=== PATIENT | female | born 1980 | race Caucasian/White ===

== ENCOUNTER 2022-12-11 10:31 | Outpatient (OUT) | payer BC, SELFPAY ==
--- NOTE | 2022-12-11 10:36 | MM_ITS ---
Patient: FABIOLA ANAYA Exam Date: 12/11/2022 : 1980 Gender:F Ordering : DR. LAN SINGLETON D.O. Admission #: [id number] Family : DR MARGARET COLLADO . Order #: [id number] CLICK HERE TO VIEW EXAM RADIOLOGY REPORT PROCEDURE: MM TOMOSYNTHESIS SCREENING BI COMPARISON: MG MAMM SCREEN 3D CHRISTINA CAD, 12/08/2021. MG MAMM RT DIAG W CAD, 10/16/2019. MG MAMM SCREEN CHRISTINA W CAD, 02/25/2019. INDICATIONS: Screening Calculator Name NCI Breast Cancer Risk Assessment Tool 5 Year Breast Cancer Risk 2.80% Lifetime Breast Cancer Risk 20.20% Personal Breast Cancer No Personal Ovarian Cancer No Treatments None Family Cancers None LOCATION: [facility] BREAST COMPOSITION: Heterogeneously dense,which may obscure small masses. FINDINGS: DIAGNOSTIC CATEGORY 2--BENIGN FINDING: RIGHT BREAST: No significant suspicious finding. Chronic, benign appearing lymph node within the upper-outer quadrant. Stable biopsy marker clip. No significant change has occurred. LEFT BREAST: No significant suspicious finding. No significant change has occurred. RECOMMENDATIONS: ROUTINE MAMMOGRAM AND CLINICAL EVALUATION IN 12 MONTHS. PLEASE NOTE: A NORMAL MAMMOGRAM DOES NOT EXCLUDE THE POSSIBILITY OF BREAST CANCER. A CLINICALLY SUSPICIOUS PALPABLE LUMP SHOULD BE BIOPSIED. Dictated by: Jeremi Cantrell M.D. on 12/11/2022 at 15:29 Approved by: Jeremi Cantrell M.D. on 12/11/2022 at 15:31
== END 2022-12-11 10:32 | disposition home or self-care (01) ==
LOC: MAMMO 10:31
PROVIDERS: PCP Family Medicine; Visit Provider Obstetrics & Gynecology
DX: Z12.31 Encounter for screening mammogram for malignant neoplasm of breast (principal)
CPT/HCPCS: 77063; 77067

== ENCOUNTER 2023-12-13 16:03 | Outpatient (OUT) | payer BC, SELFPAY ==
--- NOTE | 2023-12-13 16:06 | MM_ITS ---
Patient Name: FABIOLA ANAYA MR#: [id number] : 1980 Exam Date: 12/13/2023 Ordering Doctor: DR MARGARET COLLADO . RADIOLOGY REPORT PROCEDURE: MM TOMOSYNTHESIS SCREENING BI COMPARISON: MM TOMOSYNTHESIS SCREENING BI, 12/11/2022. INDICATIONS: Screening for malignant neoplasm Calculator Name NCI Breast Cancer Risk Assessment Tool 5 Year Breast Cancer Risk 3.00% Lifetime Breast Cancer Risk 19.90% Personal Breast Cancer No Personal Ovarian Cancer No Treatments None Family Cancers None LOCATION: [facility] BREAST COMPOSITION: The breasts are heterogeneously dense,which may obscure small masses. FINDINGS: DIAGNOSTIC CATEGORY 2--BENIGN FINDING. NO CHANGE FROM COMPARISON. Scattered benign-appearing calcifications are present. Scattered benign-appearing lymph nodes are present. RIGHT BREAST: No significant suspicious finding. LEFT BREAST: No significant suspicious finding. RECOMMENDATIONS: ROUTINE MAMMOGRAM AND CLINICAL EVALUATION IN 12 MONTHS. PLEASE NOTE: A NORMAL MAMMOGRAM DOES NOT EXCLUDE THE POSSIBILITY OF BREAST CANCER. A CLINICALLY SUSPICIOUS PALPABLE LUMP SHOULD BE BIOPSIED. Dictated by: Elmo Del Cid MD on 12/14/2023 at 07:44 Approved by: Elmo Del Cid MD on 12/14/2023 at 07:47
--- OUTSIDE RECORDS SUMMARY | 2023-12-13 16:14 | XMS_ITS | CCD ---
Author Organization [facility] CliniSyct Care Team Providers Care Communications Coordinator Name Role Phone Caity Wood Unavailable Unavailable Caity Wood Unavailable Unavailable Cary Young Unavailable Unavailable RINKESELIZABETH Admitting Unavailable RINKES, ELIZABETH Attending Unavailable ZIEBER, DR JEREMI White Consulting Unavailable RINKES, ELIZABETH Consulting Unavailable TIMMIS, DR ZEPEDA Admitting Unavailable TIMMIS, DR ZEPEDA Attending Unavailable HEMEYER ., DR ROBLES Primary Care Unavailable TIMMIS, DR ZEPEDA Consulting Unavailable SHARP, OSORIO Consulting Unavailable KERRY II, SOFIA Consulting Unavailable TIMMIS, DR ZEPEDA Admitting Unavailable TIMMIS, DR ZEPEDA Attending Unavailable HEMEYER ., DR ROBLES Primary Care Unavailable TIMMIS, DR ZEPEDA Consulting Unavailable COOPER, LUC Consulting Unavailable TIMMIS, DR ZEPEDA Admitting Unavailable TIMMIS, DR ZEPEDA Attending Unavailable HEMEYER ., DR ROBLES Primary Care Unavailable TIMMIS, DR ZEPEDA Consulting Unavailable ZIEBER, DR JEREMI White Consulting Unavailable HEMEYER ., DR ROBLES Admitting Unavailable HEMEYER ., DR ROBLES Attending Unavailable HEMEYER ., DR ROBLES Consulting Unavailable JESSICA ROSS Consulting Unavailable Eron Collado MD Unavailable [phone] Eron Collado MD Primary Care Provider ERON COLLADO Attending Unavailable ERON COLLADO Attending Unavailable ERON COLLADO Attending Unavailable Medications Current Medications Medication Drug Class(es) Dates Sig (Normalized) Sig (Original) thyroid (half-way) 60 mg oral tablet (3 sources) Start: 09-22-2022 End: 03-21-2023 take 1 tablet by mouth in the morning thyroid (FITTER TYPE BAR AND SEGMENT Thyroid) 60 MG tablet Indications: Acquired hypothyroidism (CMS/HCC) , Marlene's thyroiditis (CMS/HCC) , Sick-euthyroid syndrome Take 1 tablet (60 mg) by mouth in the morning and 1 tablet (60 mg) in the evening. Take before meals. 180 tablet 1 09/22/2022 Active Problems Active Problems Problem Classification Problem Date Documented Date Episodic/Chronic Anxiety disorders (6 sources) Mixed anxiety and depressive disorder; Translations: [Other specified anxiety disorders] Onset: 08-22-2022 08-22-2022 Chronic Essential hypertension (4 sources) Essential (primary) hypertension; Translations: [Essential hypertension] Onset: 02-19-2022 08-22-2022 Chronic Lymphadenitis (1 source) Localized enlarged lymph nodes; Translations: [LOCALIZED ENLARGED LYMPH NODES] Onset: 05-22-2022 Episodic Malaise and fatigue (3 sources) Fatigue; Translations: [Chronic fatigue, unspecified] Onset: 08-22-2022 08-22-2022 Chronic Mood disorders (3 sources) Recurrent major depression in partial remission; Translations: [Major depressive disorder, recurrent, in partial remission] Onset: 08-22-2022 08-22-2022 Chronic Other endocrine disorders (3 sources) Reactive hypoglycemia; Translations: [Other hypoglycemia] Onset: 08-23-2018 08-22-2022 Chronic Other nervous system disorders (3 sources) Inattention; Translations: [Attention and concentration deficit] Onset: 08-22-2022 08-22-2022 Chronic Other nutritional; endocrine; and metabolic disorders (3 sources) Hypophosphatemia; Translations: [Other disorders of phosphorus metabolism] Onset: 08-22-2022 08-22-2022 Chronic Other nutritional; endocrine; and metabolic disorders (3 sources) Insulin resistance; Translations: [Insulin resistance] Onset: 08-22-2022 08-22-2022 Chronic Other nutritional; endocrine; and metabolic disorders (3 sources) Metabolic syndrome X; Translations: [Metabolic syndrome X] Onset: 08-22-2022 08-22-2022 Chronic Other upper respiratory disease (3 sources) Allergic rhinitis; Translations: [Allergic rhinitis, unspecified] Onset: 08-22-2022 08-22-2022 Chronic Residual codes; unclassified (3 sources) Initial insomnia; Translations: [Other insomnia] Onset: 08-22-2022 08-22-2022 Chronic Thyroid disorders (14 sources) Autoimmune thyroiditis; Translations: [Nontoxic single thyroid nodule] Onset: 03-23-2022 Chronic Past or Other Problems Problem Classification Problem Date Documented Da te Episodic/Chronic Abdominal pain (3 sources) Generalized abdominal pain; Translations: [Generalized abdominal pain] Onset: 08-22-2022 08-22-2022 Episodic Nutritional deficiencies (3 sources) Iron deficiency; Translations: [Iron deficiency] Onset: 08-22-2022 08-22-2022 Episodic Other circulatory disease (1 source) Other specified symptoms and signs involving the circulatory and respiratory systems; Translations: [OTH SPEC SX SIGNS INVLV CIRC RS] Onset: 02-19-2022 Episodic Other lower respiratory disease (4 sources) Shortness of breath; Translations: [SHORTNESS OF BREATH] Onset: 02-15-2022 Episodic Other screening for suspected conditions (not mental disorders or infectious disease) (4 sources) Encounter for screening mammogram for malignant neoplasm of breast; Translations: [ENC SCR MAMMO MALIG NEOPLASM BREAST] Onset: 12-08-2021 Episodic Other skin disorders (3 sources) Vitiligo; Translations: [Vitiligo] Onset: 08-22-2022 08-22-2022 Episodic Thyroid disorders (10 sources) Disorder of thyroid, unspecified; Translations: [Sick-euthyroid syndrome] Onset: 05-10-2022 Episodic Results Test Name Value Interpretation Reference Range Facil ity PREG HCG QUALon 05-16-2022 , QUAL Negative Normal NEGATIVE [facility] Comment on above: Performed By: #### P REG #### [facility] [address] [address] [address] Jennifer Ochoa CALCIUMon 05-08-2022 Calcium [Mass/Vol] 9.0 mg/dL Normal 8.5-10.1 [facility] Comment on above: Performed By: #### C A, MG, PHOS #### [facility] [address] [address] [address] Jennifer Ochoa CBC AUTO DIFFon 05-08-2022 BASO # 0.0 103/ul Normal 0.0-0.1 [facility] Comment on above: Performed By: #### C BC #### [facility] [address] [address] [address] Jennifer Ochoa Basophils/100 WBC (Bld) 0.7 % Normal 0.2-2.0 [facility] Comment on above: Performed By: #### C BC #### [facility] [address] [place] [address] Dr. Jennifer Ochoa EO # 0.1 103/ul Normal 0.0-0.7 [facility] Comment on above: Performed By: #### C BC #### [facility] [address] [place] [address] Dr. Jennifer Ochoa Eosinophils/100 WBC (Bld) 2.4 % Normal 0.9-7.0 [facility] Comment on above: Performed By: #### C BC #### [facility] [address] [place] [address] Dr. Jennifer Ochoa Erythrocyte distribution width (RBC) [Ratio] 13.7 % Normal 11.0-15.0 [facility] Comment on above: Performed By: #### C BC #### [facility] [address] [place] [address] Dr. Jennifer Ochoa Hematocrit (Bld) [Volume fraction] 40.4 % Normal 36.0-48.0 [facility] Comment on above: Performed By: #### C BC #### [facility] [address] [place] [address] Dr. Jennifer Ochoa Hemoglobin (Bld) [Mass/Vol] 13.0 g/dL Normal 12.0-16.0 [facility] Comment on above: Performed By: #### C BC #### [facility] [address] [place] [address] Dr. Jennifer Ochoa IG # 0.01 10e3/ul Normal 0.00-0.03 [facility] Comment on above: Performed By: #### C BC #### [facility] [address] [place] [address] Dr. Jennifer Ochoa IG % 0.2 % Normal 0.0-0.5 [facility] Comment on above: Performed By: #### C BC #### [facility] [address] [place] [address] Dr. Jennifer Ochoa LYMPH # 1.3 103/ul Normal 1.2-3.8 [facility] Comment on above: Performed By: #### C BC #### [facility] [address] [place] [address] Dr. Jennifer Ochoa Lymphocytes/100 WBC (Bld) 23.7 % Normal 20.5-60.0 [facility] Comment on above: Performed By: #### C BC #### [facility] [address] [place] [address] Dr. Jennifer Ochoa MANUAL DIFF REQ NO Normal [facility] Comment on above: Performed By: #### C BC #### [facility] [address] [place] [address] Dr. Jennifer Ochoa MCH (RBC) [Entitic mass] 28.2 pg Normal 26.7-34.0 [facility] Comment on above: Performed By: #### C BC #### [facility] [address] [place] [address] Dr. Jennifer Ochoa MCHC (RBC) [Mass/Vol] 32.2 g/dL Normal 29.9-35.2 [facility] Comment on above: Performed By: #### C BC #### [facility] [address] [place] [address] Dr. Jennifer Ochoa MCV (RBC) [Entitic vol] 87.6 fL Normal 81.0-99.0 [facility] Comment on above: Performed By: #### C BC #### [facility] [address] [place] [address] Dr. Jennifer Ochoa MONO # 0.5 103/ul Normal 0.3-0.8 [facility] Comment on above: Performed By: #### C BC #### [facility] [address] [place] [address] Dr. Jennifer Ochoa Monocytes/100 WBC (Bld) 8.3 % Normal 1.7-12.0 [facility] Comment on above: Performed By: #### C BC #### [facility] [address] [place] [address] Dr. Jennifer Ochoa NEUT # 3.6 103/ul Normal 1.4-6.5 [facility] Comment on above: Performed By: #### C BC #### [facility] [address] [place] [address] Dr. Jennifer Ochoa Neutrophils/100 WBC (Bld) 64.7 % Normal 43.0-75.0 [facility] Comment on above: Performed By: #### C BC #### [facility] [address] [place] [address] Dr. Jennifer Ochoa Platelet mean volume (Bld) [Entitic vol] 9.8 fL Normal 9.5-13.5 [facility] Comment on above: Performed By: #### C BC #### [facility] [address] [place] [address] Dr. Jennifer Ochoa PLT 268 103/ul Normal 150-450 [facility] Comment on above: Performed By: #### C BC #### [facility] [address] [place] [address] Dr. Jennifer Ochoa RBC 4.61 106/ul Normal 4.20-5.40 [facility] Comment on above: Performed By: #### C BC #### [facility] [address] [place] [address] Dr. Jennifer Ochoa WBC 5.5 103/ul Normal 4.0-11.0 [facility] Comment on above: Performed By: #### C BC #### [facility] [address] [place] [address] Dr. Jennifer Ochoa MAGNESIUMon 05-08-2022 Magnesium [Mass/Vol] 2.1 mg/dL Normal 1.8-2.4 [facility] Comment on above: Performed By: #### C A, MG, PHOS #### [facility] [address] [place] [address] Dr. Jennifer Ochoa PHOSPHORUSon 05-08-2022 Phosphate [Mass/Vol] 1.9 mg/dL Critically low 2.6-4.7 [facility] Comment on above: Performed By: #### C A, MG, PHOS #### [facility] [address] [place] [address] Dr. Jennifer Ochoa PROTIMEon 05-08-2022 INR Coag (PPP) [Relative time] 0.96 {INR} Normal [facility] Comment on above: Performed By: #### P T, PTT ####[facility] [id number] [place], [place] [address]Wq. Jennifer Ochoa INR GUIDELINES SEE BELOW Normal [facility] Comment on above: Result Comment: SURJIT RED INR: 2.0 - 3.0 CONDITIONS NOT LISTED BELOW 2.5 - 3.5 FOR PROSTHETIC HEART VALVE REPLACEMENT 2.5 - 3.5 RECURRENT THROMBOSIS Performed By: #### P T, PTT ####[facility] [id number] [place], [place] [address]Ie. Jennifer Ochoa PT Coag (PPP) [Time] 10.2 s Normal 9.0-11.6 [facility] Comment on above: Performed By: #### P T, PTT ####[facility] [id number] [place], [place] [address]Ni. Jennifer Ochoa PTTon 05-08-2022 aPTT Coag (Bld) [Time] 29.1 s Normal 22.3-36.2 [facility] Comment on above: Performed By: #### P T, PTT #### [facility] [address] [place], [place] [address] Dr. Jennifer Ochoa US THYROID FN ASP BXon 03-31 US THYROID FN ASP BX Begin Addendum #1 COLLECTED DATE/TIME: 03/23/2022 13:28 EST Final Diagnosis Report for [facility] [place], [place] (A/B) RIGHT ISTHMUS THYROID NODULE, ULTRASOUND GUIDED FINE NEEDLE ASPIRATION: -ATYPIA OF UNDETERMINED SIGNIFICANCE. COMMENT: The specimen consists of a few groups of follicular cells with some cytological atypia and occasional background lymphocytes. Cytological evaluation is partially limited by drying artifact on direct smears. The ThinPrep slide is hypocellular. A repeat aspiration after a period of observation may be helpful if clinically warranted. 03/29/[address] Bean. Verified with office staff that report was present in office (BM). Original Report EXAMINATION: US THYROID FN ASP BX HISTORY: Thyroid nodule COMPARISON: Ultrasound thyroid 03/08/2022 TECHNIQUE: After obtaining informed consent, ultrasound-guided fine needle aspiration was performed in the usual sterile manner. FINDINGS: IMAGING: Ultrasound. BIOPSY NEEDLE: 25-gauge, 3 separate passes LOCATION: Right lobe nodule adjacent isthmus versus heterogeneous thyroid tissue. SPECIMEN TYPE: Cellular tissue. LOCAL ANESTHETIC: Buffered Xylocaine. COMPLICATIONS: None. LABORATORY: Prepared slide smears and washings for cell block evaluation. OTHER: Negative. PATHOLOGY: Pending. An addendum will be added when results are available. IMPRESSION: 1. Uneventful ultrasound guided fine needle aspiration (FNA). 2. Pathology results are pending. Normal [facility] US Thyroidon 03-08-2022 US Thyroid CLINICAL HISTORY: 41-year-old female with history of dysphagia. Physician feels enlarged thyroid gland tried COMPARISON: None available. TECHNIQUE: Biplanar images of the thyroid gland were obtained. Also cine images of the thyroid gland were obtained in the axial projections. FINDINGS: The right lobe measures 4.3 x 1.6 x 1.7 cm and has a volume 5.9 mL. The left lobe measures 4.3 x 1.2 x 1.2 cm and has a volume of 3.2 mL. The right lobe is normal in size. Left lobe is normal in size. Thyroid gland has a heterogeneous echotexture throughout. There is a nodule in the right isthmus. Right lobe: Nodule location: Right isthmus with vascularity. Nodule size: 2.1 x 1.4 x 0.7 cm Composition: Solid Echogenicity: Hypoechoic Shape: wider than long Margin: Extrathyroidal extension Echogenic Foci: none Total points: 7 TR 5 nodule: Highly Suspicious: FNA greater than 1 cm; follow if greater than 0.5 cm Left lobe: Unremarkable. IMPRESSION: NORMAL-SIZED THYROID GLAND WITH HETEROGENEOUS ECHOTEXTURE. 2.1 CM, TR 5 NODULE RIGHT LOBE AT THE ISTHMUS, CONSIDER BIOPSY TO EXCLUDE NEOPLASM. Note, please refer to ACR TI-RADS 2017 White paper for classification of nodules. TR 1: Benign: No FNA. TR 2: Not Suspicious: No FNA. TR 3 nodule, Mildly Suspicious: FNA if greater than 2.5 cm; follow if greater than 1.5 cm TR 4 nodule: Moderately Suspicious : recommend FNA if greater than 1.5 cm; follow-up if greater than 1 cm. TR 5 nodule: Highly Suspicious: FNA greater than 1 cm; follow if greater than 0.5 cm Report reported and signed by Rosy Maguire on 03/09/2022 0914 Normal [facility] Practice Management Consultant XR CHEST 2 Von 02-15-2022 XR CHEST 2 V EXAM: CHEST 2 VIEWS HISTORY: Dyspnea TECHNIQUE: PA and lateral views chest. COMPARISON: None. FINDINGS: The lungs are clear. There is no focal lung consolidation, pleural effusion or pneumothorax. Pulmonary vasculature is within normal limits. The cardiomediastinal silhouette is normal. IMPRESSION: 1. No acute cardiopulmonary disease. Electronically authenticated by: JESSICA ROSS Date: 2022-02-15 17:22 Normal [facility] MG MAMM SCREEN 3D CHRISTINA CADon 12-08-2021 MG MAMM SCREEN 3D CHRISTINA CAD Patient: FABIOLA ANAYA Exam Date: 12/08/2021 : 1980 Gender:F Ordering : DR. ELIZABETH WHITE D.O. Admission #: [id number] Family : DR ERON COLLADO . Order #: [id number] CLICK HERE TO VIEW EXAM RADIOLOGY REPORT PROCEDURE: MAMMOGRAM SCREENING 3D BILATERAL CAD COMPARISON: MG MAMM SCREEN CHRISTINA W CAD, 02/25/2019. MG MAMM RT DIAG W CAD, 10/16/2019. MAMMO POST BIOPSY RIGHT, 03/11/2019. INDICATIONS: Screening mammography Calculator Name NCI Breast Cancer Risk Assessment Tool 5 Year Breast Cancer Risk 2.60% Lifetime Breast Cancer Risk 20.50% Personal Breast Cancer No Personal Ovarian Cancer No Treatments None Family Cancers None LOCATION: [facility] BREAST COMPOSITION: Heterogeneously dense,which may obscure small masses. FINDINGS: DIAGNOSTIC CATEGORY 2--BENIGN FINDING: RIGHT BREAST: No significant suspicious finding. Decrease in size of previously biopsied nodule within upper-outer quadrant. Small benign appearing lymph node within posterior lower-outer quadrant. LEFT BREAST: No significant suspicious finding. No significant change has occurred. RECOMMENDATIONS: ROUTINE MAMMOGRAM AND CLINICAL EVALUATION IN 12 MONTHS. PLEASE NOTE: A NORMAL MAMMOGRAM DOES NOT EXCLUDE THE POSSIBILITY OF BREAST CANCER. A CLINICALLY SUSPICIOUS PALPABLE LUMP SHOULD BE BIOPSIED. Dictated by: Jeremi Cantrell M.D. on 12/08/2021 at 15:35 Approved by: Jeremi Cantrell M.D. on 12/08/2021 at 15:42 Normal [facility] Free T3on 03-21-2021 FT3 3.93 pg/mL Normal 2.00-4.40 [facility] Comment on above: Performed By: #### T SH, FT3, FT4 #### [facility] [address] [place], [place] [id number] Free T4on 03-21-2021 Free T4 [Mass/Vol] 1.05 ng/dL Normal 0.80-1.80 [facility] Comment on above: Performed By: #### T SH, FT3, FT4 #### [facility] [address] [place], [place] [id number] Q - T3 TOTALon 03-21-2021 T3, TOTAL 148 ng/dL Normal 76-181 [facility] Comment on above: Order Comment: [facility] performed at: [facility], [facility], [address] [facility], [address] [place] [address], [id number], Customer Contact Specialist: Dimitris Hughes MD [facility] Collection Date/Time: [facility] Results Received Date/Time: [facility] Reported Date/Time: Performed By: #### 9 [id number], [id number] #### [facility] Default [address] [place] [address] Q - T3,REVERSE,LC/MS/MSon T3 REVERSE, LC/MS/MS 17 ng/dL Normal 8-25 [facility] Specialist Comment on above: Order Comment: [facility] performed at: [facility], [facility], [address], [place], [place], , Customer Contact Specialist: Todd Chaves M.D.,PhD [facility] Collection Date/Time: [facility] Results Received Date/Time: [facility] Reported Date/Time: Result Comment: This test was developed and its analytical performance characteristics have been determined by [facility] [place], [place]. It has not been cleared or approved by the U.S. Food and Drug Administration. This assay has been validated pursuant to the CLIA regulations and is used for clinical purposes. Performed By: #### 9 [id number], [id number] #### [facility] [address] [place] [address] TSHon 03-21-2021 TSH Qn m[IU]/L [facility] Practice Management Consultant Comment on above: Performed By: #### T SH, FT3, FT4 #### [facility] [address] [place], [place] [id number] Encounters Encounter Date Encounter Type Care Provider Facility Start: 08-29-2023 End: 08-29-2023 ambulatory ERON COLLADO Not Available Start: 06-19-2023 End: 06-19-2023 ambulatory ERON COLLADO Not Available Start: 03-27-2023 Bamboo flowsheet Eron valles MD Work Phone: [facility] Start: 03-27-2023 Bamboo flowsheet Eron valles MD Work Phone: [facility] Start: 03-27-2023 End: 03-27-2023 ambulatory ERON COLLADO Not Available Start: 03-26-2023 Chart abstracting Eron mendoza MD Work Phone: [facility] Start: 03-20-2023 Chart abstracting Eron mendoza MD Work Phone: [facility] Start: 05-16-2022 End: 05-17-[address] MYLENE BEAN Facility:[facility] Start: 05-10-2022 Encounter for preprocedural laboratory examination DR MYLENE BEAN [facility] Start: 05-08-2022 End: 05-09-[address] MYLENE BEAN Facility:[facility] Start: 05-08-2022 End: 05-09-2022 Encounter for preprocedural laboratory examination DR MYLENE BEAN Facility:[facility] Start: 03-23-2022 End: 03-23-[address] MYLENE BEAN Facility:[facility] Start: 02-15-2022 End: 02-16-[address] ERON COLLADO . Facility:[facility] Start: 12-08-2021 End: 12-09-2021 ambulatory ELIZABETH WHITE Facility: Start: 03-02-2017 End: 03-03-2017 Ambulatory Caity Wood Facility:[facility] Procedures Date Procedure Procedure Detail Performing Clinician Start: 12-11-2022 Mammography Eron mendoza MD Work Phone: Plan of Treatment Date Care Activity Detail Author Start: 10-26-2027 Screening for malign ant neoplasm of cervix [facility] Start: 12-12-2023 Screening for malign ant neoplasm of breast Mammogram [facility] Start: 11-15-2023 End: 11-15-2023 Patient encounter procedure 11/15/2023 10:15 AM EDT Office Visit [facility] [address] [place] [id number] Elizabeth White, DO [address] [place] [address] [facility] Start: 03-27-2023 End: 03-27-2023 Patient encounter procedure [facility] Comment on above: Acquired hypothyroid ism (CMS/HCC); Sick-euthyroid syndrome; Chronic fatigue Start: 10-13-2022 Influenza vaccination Influenza Vacc ine (#1) [facility] Start: 07-21-1999 Screening for malign ant neoplasm of cervix Pap Smear [facility] Payers Date Payer Category Payer Unknown 1980 Unknown [id number] 2.16.84 [id number] 1980 Unknown [id number] 2.16.84 [id number] 1980 Unknown [id number] 2.16.84 [id number] 1980 Unknown [id number] 2.16.84 [id number] 1980 Unknown [id number] 2.16.84 [id number] 1980 Unknown [id number] 2.16.84 [id number] 1980 Unknown [id number] 2.16.84 [id number] 1980 Unknown [id number] 2.16.84 [id number] 1961 Unknown [id number] Social History Date Type Detail Facility Start: 07-13-2022 Tobacco smoking status NHIS Never sm oked tobacco [facility] Start: 10-25-2022 Alcohol intake Current drinke r of alcohol (finding) [facility] Start: 08-28-2022 End: 10-25-2022 Alcohol intake [facility] Start: 07-13-2022 End: 08-28-2022 Humiliation, Afraid, Rape, and Kick questionnaire [HARK] [facility] Within the last year , have you been afraid of your partner or ex-partner? No [facility] Are you now , , , , never or living with a partner? [facility] How often to you hav e a drink containing alcohol? Monthly or less [facility] How many standard dr inks containing alcohol do you have on a typical day? Patient does not drink [facility] How often do you hav e 6 or more drinks on 1 occasion? Never [facility] How hard is it for y ou to pay for the very basics like food, housing, medical care, and heating Somewhat hard [facility] Do you feel stress - tense, restless, nervous, or anxious, or unable to sleep at night because your mind is troubled all the time - these days [OSQ] Very much [facility] (I/We) worried whe er (my/our) food would run out before (I/we) got money to buy more. Never true [facility] Start: 08-26-2022 Education 13 [facility] Start: 07-13-2022 Alcohol Comment Coffee: 1-2 cu ps per day [facility] Start: 1980 Sex Assigned At Not on file [facility] Clinical Note 05-16-2022 Note Date & Type Note Facility 05-16-2022 Note OPERATIVE NOTE OPERATION DATE: 05/16/2022 PRIMARY CARE PHYSICIAN: Eron Collado M.D. SURGEON: Mylene Bean M.D. RULING TECHNICIAN: SAVANNA Stark PREOPERATIVE DIAGNOSIS: Thyroid isthmus mass. POSTOPERATIVE DIAGNOSIS: Right thyroid mass and cervical lymphadenopathy. PROCEDURE: Right hemithyroidectomy and neck exploration. ANESTHESIA: General endotracheal. COMPLICATIONS: None. FINDINGS: A 3 cm right thyroid mass, frozen section consistent with Marlene's thyroiditis and anterior compartment cervical lymphadenopathy. INDICATIONS: This 41-year-old woman presented with a right thyroid isthmus mass. Fine needle aspiration was performed which revealed atypia of undetermined significance. The patient was brought to surgery for removal of the mass for definitive diagnosis. At the time of her procedure, however, it was evident that other than being a thyroid isthmus mass, it was more of a mass of the right side of the thyroid and, therefore, hemithyroidectomy was performed other than removal of a thyroid nodule. In addition, patient was found to have cervical lymphadenopathy in the anterior compartment, and anterior compartment dissection was undertaken. PROCEDURE: Patient identified in the holding area and taken back to the OR, where she was placed in the supine position. After induction of general endotracheal anesthesia, using recurrent laryngeal nerve monitoring tube, the neck was prepped and draped in a sterile fashion. An 8 cm transverse incision, following relaxed skin lines of tension, was mapped out, three finger breadths above the sternal notch. Dissection was carried out through the platysma with electrocautery and subplatysmal flaps were raised superiorly to the thyroid notch and inferiorly to the clavicle. A thyroid retractor was then put in position and the strap muscles were incised in the midline with electrocautery and harmonic scalpel. Once the strap muscles were elevated off of the thyroid isthmus, it became evident that the patient's mass was more of a right thyroid mass than an isthmus mass, and decision was made to proceed with hemithyroidectomy rather than removal of a thyroid nodule. In addition, inferior to the thyroid, there was fibroadipose tissue containing multiple cervical lymph nodes. This was dissected away with harmonic scalpel and sent for separate pathologic analysis. There was a large vein originating off of the thyroid isthmus, and this was clipped with a HemaClip and transected with the harmonic scalpel. Similarly, the vein entering the superior portion of the isthmus was also clipped with a HemaClip and transected with the harmonic scalpel. The isthmus was transected to the left of the thyroid mass, and the residual left lobe was tagged with a Prolene suture to facilitate future identification, should it be necessary. Then, the strap muscles were bluntly dissected off of the anterior and lateral thyroid, and transected with the harmonic scalpel. Then a subcapsular dissection of the thyroid was undertaken, with identification exposure of the superior thyroid vessels, which were hemoclipped and transected with the harmonic scalpel and with transection of the fibrovascular attachments of the inferior portion of the gland. The middle thyroid vein was identified, hemoclipped and transected with the harmonic scalpel. At this point, the gland was rotated medially, and the parathyroid glands were identified and bluntly dissected away from the gland and preserved. The recurrent laryngeal nerve was identified electrically in the tracheoesophageal groove, and with then nerve under continuous electrical observation, the remainder of the gland was dissected away from its fascial attachments until it was attached only by Lira's ligament, which was transected after cautery with bipolar. One dissection was completed, the recurrent laryngeal nerve was stimulated inferiorly and found to be electrically intact. 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 The wound was then copiously irrigated. A #7 round [place] drain was placed through a stab incision in the sternal notch. The strap muscles were re-approximated with interrupted 3-0 Vicryl sutures, and the skin was then closed with two deep interrupted 4-0 Vicryl sutures layers and a running 5-0 Monocryl stitch. A pressure dressing was placed and the patient was awakened and taken to the recovery room in good condition. [facility] Summary Purpose Family History No Family History Records FoundNo Family History Records FoundNo Family History Records FoundNo Family History Records Found Advance Directives No Advanced Directives Records FoundNo Advanced Directives Records FoundNo Advanced Directives Records FoundNo Advanced Directives Records Found Additional Source Comments INFORMATION SOURCE (unrecogn ized section and content) DATE CREATED AUTHOR 08/07/2017 [place] [facility] DATE CREATED AUTHOR AUTHOR'S ORGANIZ ATION 03/09/2022 [facility] DATE CREATED AUTHOR AUTHOR'S ORGANIZ ATION 05/22/2022 [facility] DATE CREATED AUTHOR AUTHOR'S LAVERN BENAVIDES 09/01/2023 [facility] Care Teams (unrecognized sec tion and content) Communications Coordinator Relationship Specialty Start Date End Date Eron Collado MD [address] [facility] [place] [address] (Fax) PCP - [place] [facility] 05/13/20 Eron Collado MD [address] [place] [address] PCP - General Family Medicine 08/10/22 Communications Coordinator Relationship Specialty Start Date End Date Eron Collado MD [address] [facility] [place] [address] (Fax) PCP - [place] [facility] 05/13/20 Eron Collado MD [address] [place] [address] PCP - General Family Medicine 08/10/22 FOR RECORDS PERTAINING TO PATIENTS WHO ARE OR HAVE BEEN ENROLLED IN A CHEMICAL DEPENDENCY/SUBSTANCEABUSE PROGRAM, SOME INFORMATION MAY BE OMITTED. This clinical summary was aggregated from multiple sources. Caution should be exercised in using it in the provision of clinical care. This summary normalizes information from multiple sources, and as a consequence, information in this document may materially change the coding, format and clinical context of patient data. In addition, data may be omitted in some cases. CLINICAL DECISIONS SHOULD BE BASED ON THE PRIMARY CLINICAL RECORDS. [employer] provides no warranty or guarantee of the accuracy or completeness of information in this document.
== END 2023-12-13 16:04 | disposition home or self-care (01) ==
LOC: MAMMO 16:03
PROVIDERS: PCP Family Medicine; Visit Provider Family Medicine
DX: Z12.31 Encounter for screening mammogram for malignant neoplasm of breast (principal)
CPT/HCPCS: 77063; 77067